=== PATIENT | female | born 1975 | race Caucasian/White ===

== ENCOUNTER 2024-02-03 13:19 | Outpatient (CLI) | payer BC, SELFPAY ==
--- NOTE | ~2024-02-03 | US_ITS ---
US pelvic complete w TV DATE: 02/03/2024 13:56 INDICATION: Abnormal cytological findings TECHNIQUE: Real-time imaging via transabdominal and transvaginal approaches COMPARISON: None FINDINGS: The uterus measures 9.9 cm sagittal, 6.1 cm transverse, 4.4 cm AP dimension. The central endometrial echo complex measures 15 mm AP dimension on transvaginal view. A 1.5 x 1 x 1.1 cm uterine fibroid is demonstrated. Right ovary measures 2.9 x 2.2 x 1.7 cm, with vascular flow demonstrated. Left ovary measures 2.8 x 2.5 x 2.41 cm, with vascular flow demonstrated. 1.3 cm left ovarian cyst. IMPRESSION: Mild uterine enlargement with 15 mm AP dimension of the endometrial echo 1.5 x 1 x 1.1 cm uterine fibroid 1.3; left ovarian cyst Reviewed, dictated and finalized at [facility]. Reviewed, dictated and finalized at [facility].
== END 2024-02-03 13:20 | disposition home or self-care (01) ==
PROVIDERS: PCP Obstetrics & Gynecology; Visit Provider Obstetrics & Gynecology
DX: R87.618 Other abnormal cytological findings on specimens from cervix uteri (principal); D25.9 Leiomyoma of uterus, unspecified; N83.202 Unspecified ovarian cyst, left side
CPT/HCPCS: 76830; 76856

== ENCOUNTER 2024-02-22 16:12 | Outpatient (CLI) | payer BC, SELFPAY ==
[2024-02-22 17:24] LABS: Hematocrit 31.5 % (37.0-47.0); Hemoglobin 9.4 g/dL (12.0-15.0); Mean Corpuscular HGB Conc 29.8 g/dl (32-36); Mean Corpuscular Hemoglobin 23.2 pg (26-34); Mean Corpuscular Volume 77.6 fl (80-100); Mean Platelet Volume 9.4 fl (7.4-10.4); Platelet Count Result 566 k/mm3 (150-375); Red Blood Count 4.06 M/mm3 (4.2-5.4); Red Cell Distribution Width 16.3 % (11.5-14.5)
== END 2024-02-22 16:13 | disposition home or self-care (01) ==
LOC: ANHLAB 16:13
PROVIDERS: PCP Chiropractor; Visit Provider Obstetrics & Gynecology
DX: N93.9 Abnormal uterine and vaginal bleeding, unspecified (principal); Z01.818 Encounter for other preprocedural examination
CPT/HCPCS: 36415; 85027

== ENCOUNTER 2024-02-23 01:10 | Day surgery (SDC) | payer BC, SELFPAY ==
--- NOTE | 2024-02-15 17:32 | SUR.PREOP ---
Report to the Outpatient Waiting Room, entrance under the green pavilion located off [facility], at time _0600_ on date _02/23/2024_. Planned Procedure Time: _0730_.? Time changes happen often and if your time is changed the preop area will call you the afternoon before. - You and your visitor will be asked to self-screen and do not enter if you have any COVID symptoms. Please call surgeon if you need to reschedule. - A mask is optional within the hospital at this time. Patients may have clear liquids (water, carbonated beverages, clear teas, apple juice) until 3 hours (0430) prior to surgery with a maximum of 20 ounces. - No food from midnight until time of surgery and no smoking - Infants may have breast milk until 4 hours before surgery, formula 6 hours prior to surgery. - Children will be allowed to drink immediately following surgery.? If applicable, please bring a bottle or sippy cup to assist with drinking. Juice, water, soda, and popsicles are readily available.? For infants on formula, please bring formula the day of surgery.? Pacifiers are allowed. Take only the following medications with a SIP of water on the morning of surgery: _NA_ DO NOT STOP ANY OF YOUR OTHER PRESCRIPTION MEDICATIONS PRIOR TO SURGERY EXCEPT THE FOLLOWING Medications to discontinue per physician __ALL VITAMINS AND SUPPLEMENTS__ Date to take last dose_02/20/24_ Please no make-up, nail amharic, hairspray, perfume, deodorant, or body powder the day of surgery.? No jewelry (including any body piercings) or valuables the day of surgery, leave them at home.? Please take a shower or bath the night before, or the morning of, surgery with an antibacterial soap.? Wear comfortable, loose fitting clothing.? Children are encouraged to wear pajamas. - Jewelry must be removed prior to entering the operating room.? Rings and piercings that are not removed may be cut off. - The hospital will not accept responsibility for valuables.? - Please leave all valuables, including medications, at home the day of surgery. If you are going home after surgery, a licensed dedicated driver must drive you home.? - NO public transportation without another adult if you receive anesthesia. - We recommend that an adult stay with you for 24 hours following discharge. - We also recommend that you do not drive, make important decision, drink alcoholic beverages, or take any drugs that were not prescribed by your health care provider for at least 24 hours after your discharge time. For Pediatric surgeries, we recommend two adults accompany the child home. Follow any additional instructions given to you from your surgeon. Telephone instructions given to _Maria E_and asked if any additional questions and then verbalized understanding. Patient advised to call surgeon office or pre surgery nurse liaison [phone] if any additional questions.
[2024-02-15 17:44] VITALS: BMI 19.8
--- NOTE | 2024-02-22 16:30 | P.HP_ITS ---
H&P: HPI History of Present Illness Date/Time: 02/22/24 16:30 49-year-old 3 para 3003 female presents for evaluation/ treatment of abnormal Pap smear as well as irregular bleeding. Irregular vaginal bleeding over the past for 6 months with cycles heavy lasting 7 days with 3-4 days heavy with clotting and cramping. Ultrasound did show small fibroid and thickened endometrial cavity. Also her last Pap smear did show endometrial cells, no dysplasia appreciated. 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) Screening for breast cancer Screening mammogram, encounter for Surgical History Surgical History History of bilateral salpingectomy (03/12/21) History of breast augmentation (~06/2015) History of 08/12/08 primary c/s--breech History of dilation and curettage 10/14/16 hscope d&c--irregular vaginal bleeding; endometrial polyp History of removal of skin mole (08/30/19) from left leg S/P scar revision (~06/2015) scar revision Family History Family History Grandparent Malignant tumor of oral cavity maternal grandfather Malignant neoplasm of liver maternal grandfather Father Malignant tumor of pharynx Social History Social History Smoking status: Never smoker Second hand tobacco smoke exposure: No Alcohol intake: current Drinks per week: 5 Alcohol use details: OCCASSIONALLY Substance use: never Substance use type: does not use Do You Feel Safe in your Home?: Yes Current Housing: Decline to Answer Concerned About Future Housing: Decline to Answer Difficulty Paying Gas/Electric Bills: Decline to Answer Difficulty Paying for Meds: Decline to Answer Currently Unemployed: Decline to Answer Education: Decline to Answer Difficulty w/ Childcare or Family Care: Decline to Answer Living arrangements: with family Additional living arrangements comments: with children Occupation/Education: occupation Additional occupation/education comments: [employer] Gender identity (if verbalized by the patient): Female Sexual Orientation (if Verbalized by the Patient): Straight or Heterosexual Spiritual care concerns: No Meds Home Medications and Allergies Home Medications Medication Instructions Recorded Confirmed Type Calcium With Vitamin D3 50 mcg PO DAILY 02/15/24 02/15/24 History Fish Oil 1,000 mg PO DAILY 02/15/24 02/15/24 History magnesium 250 mg PO DAILY 02/15/24 02/15/24 History Allergies Allergy/AdvReac Type Severity Reaction Status Date / Time No Known Allergies Allergy Verified 02/15/24 17:39 Exam 2 Const: General: cooperative and healthy appearing Resp: Effort & Inspection: normal respiratory effort Auscultation: clear to auscultation bilaterally Cardio: Rate: regular rate Rhythm: regular rhythm GI: Inspection: normal to inspection Auscultation: normal bowel sounds : External Female Exam: normal external appearance Speculum Exam - Vagina: normal appearance of the vagina Speculum Exam - Cervix: normal appearance of the cervix Bimanual exam- vagina & uterus: normal bimanual exam Bimanual Exam- Adnexa, other: normal adnexae Assessment and Plan Assessment and plan (1) Irregular bleeding: Code(s): N92.6 - Irregular menstruation, unspecified Status: Acute (2) Endometrial thickening on ultrasound: Code(s): R93.89 - Abnormal findings on diagnostic imaging of other specified body structures Status: Acute (3) Endometrial cells on cervical Pap smear inconsistent w/LMP: Code(s): R87.619 - Unspecified abnormal cytological findings in specimens from cervix uteri Status: Acute Plan 1. Hysteroscopy with uterine curettings 2. Endometrial ablation
[2024-02-23 06:15] VITALS: BP 111/38; PULSE 75; RESP 18; TEMP 37; O2SAT 100
[2024-02-23] MEDS: LACTATED RINGERS 1,000 ML 30 ML IV CONT (06:47)
[2024-02-23] MEDS: ACETAMINOPHEN 500 MG TABLET 1000 MG PO (06:48)
[2024-02-23 07:00] VITALS: BMI 20.2
--- NOTE | 2024-02-23 07:08 | WPDANESEPPF ---
Anes - Initial Pre Proc Eval Procedure: Operation Date: 02/23/24 07:30 Proposed Procedures p Hysteroscopy Dilation and Curettage with Alisa Endometrial Ablation - Kiran Pasrons MD Date/Time: 02/23/24 07:08 Surgeon: Kiran Parsons MD Pre Op Diagnosis: Abnormal Uterine Bleeding Patient Data Age: 49 Gender: F Height: 1.73 m Weight: 60.6 kg Last Vital Signs Temp 98.6 F 02/23/24 06:15 Pulse 75 02/23/24 06:15 Resp 18 02/23/24 06:15 BP 111/38 L 02/23/24 06:15 Pulse Ox 100 02/23/24 06:15 O2 Del Method Room Air 02/23/24 06:15 Allergies Allergy/AdvReac Type Severity Reaction Status Date / Time No Known Allergies Allergy Verified 02/23/24 06:55 Home Medications Medication Instructions Recorded Confirmed Type Calcium With Vitamin D3 50 mcg PO DAILY 02/15/24 02/15/24 History Fish Oil 1,000 mg PO DAILY 02/15/24 02/15/24 History magnesium 250 mg PO DAILY 02/15/24 02/15/24 History Patient hx anesthesia problems: none Family hx anesthesia problems: none Results Review: All pre-operative results and documents have been reviewed as part of the pre-operative evaluation. 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) Screening for breast cancer Screening mammogram, encounter for Surgical History Surgical History History of bilateral salpingectomy (03/12/21) History of breast augmentation (~06/2015) History of 08/12/08 primary c/s--breech History of dilation and curettage 10/14/16 hscope d&c--irregular vaginal bleeding; endometrial polyp History of removal of skin mole (08/30/19) from left leg S/P scar revision (~06/2015) scar revision Family History Family History Grandparent Malignant tumor of oral cavity maternal grandfather Malignant neoplasm of liver maternal grandfather Father Malignant tumor of pharynx Social History Social History Smoking status: Never smoker Second hand tobacco smoke exposure: No Alcohol intake: current Drinks per week: 5 Alcohol use details: OCCASSIONALLY Substance use: never Substance use type: does not use Do You Feel Safe in your Home?: Yes Current Housing: Decline to Answer Concerned About Future Housing: Decline to Answer Difficulty Paying Gas/Electric Bills: Decline to Answer Difficulty Paying for Meds: Decline to Answer Currently Unemployed: Decline to Answer Education: Decline to Answer Difficulty w/ Childcare or Family Care: Decline to Answer Living arrangements: with family Additional living arrangements comments: with children Occupation/Education: occupation Additional occupation/education comments: [employer] Gender identity (if verbalized by the patient): Female Sexual Orientation (if Verbalized by the Patient): Straight or Heterosexual Spiritual care concerns: No Anes - Eval Final PreProcedure Day of Procedure 02/23/24 07:08 Patient weight: normal Heart: regular rate and rhythm Lungs: clear to auscultation Airway: Mallampati scale class 1 Neurological: alert and oriented Last oral intake: >/= 8 hours ASA classification: I Emergent: no Anesthetic plan: proceed Anesthesia type and monitoring: general GIVS and standard monitoring Results Review: All pre-operative results and documents have been reviewed as part of the pre-operative evaluation. Healthy. Informed Consent: The patient's anesthetic plan and its attendant risks and benefits were discussed with the patient/family/POA. Questions were solicited and answers provided to the satisfaction of the patient/family/POA.
[2024-02-23 07:19] LABS: BEDSIDEPREGUCG Negative (Negative)
--- NOTE | 2024-02-23 07:22 | WPDHPUPDATE1 ---
History and Physical Update Update Date/Time: 02/23/24 07:22 History and Physical has been reviewed, including an updated exam of the patient. There are NO changes in the patient's condition. Risks, benefits, and alternatives have been discussed and questions answered. Patient agrees to proceed with procedure.
[2024-02-23 07:24] VITALS: BP 97/53
[2024-02-23] MEDS: ceFAZolin 2 GM/D5W 50 ML 2 GM/50 ML BAG IVPB (07:28)
--- NOTE | 2024-02-23 07:53 | W.PM.PROC2 ---
Procedure Note - Detailed Date of Procedure 02/23/24 Pre-op Diagnosis 1. Irregular vaginal bleeding 2. Endometrial thickening on ultrasound 3. Endometrial cells on Pap smear Post-op Diagnosis Same Procedure Performed 1. Hysteroscopy with uterine curettings 2. Endometrial ablation Surgeon Kiran Parsons MD Anesthesia MAC Findings Endometrial cavity without abnormality Description of Procedure Patient prepped and draped in usual manner for this procedure. Cervix was dilated to allow the hysteroscope to be placed which did reveal both ostia without difficulty, lining of the uterus with no abnormalities also endocervical canal without abnormalities. Curettings were obtained and the Alisa instrument was placed, cavity assessment was performed, instrument was activated. At the end of the cycle hysteroscopic exam revealed good destruction of the endometrial cavity throughout. At this point procedure was considered terminated the patient was sent to recovery room stable condition. Estimated Blood Loss 10 Drains No Packing No Pathology Yes Complications No immediate complications Condition Stable Disposition PACU [facility] Billing Surgery - Charge Forward: Surgery Billing
[2024-02-23 07:58] VITALS: BP 85/51; PULSE 64; RESP 12; O2SAT 99
[2024-02-23 08:30] VITALS: BP 90/63; PULSE 61
[2024-02-23 08:45] VITALS: BP 111/58; PULSE 57
== END 2024-02-23 09:15 | disposition home or self-care (01) ==
PROVIDERS: PCP Chiropractor; Visit Provider Obstetrics & Gynecology
PROC: 0U5B8ZZ Destruction of Endometrium, Via Natural or Artificial Opening Endoscopic (ICD-10-PCS; CPT 58563; principal; 2024-02-23 07:30)
DX: N93.9 Abnormal uterine and vaginal bleeding, unspecified (principal); R93.89 Abnormal findings on diagnostic imaging of other specified body structures
CPT/HCPCS: 58563; 88305; A9270; J0690; J1100; J2003; J2250; J2405; J2704; J3010; J7120